=== PATIENT | male | born 1955 | race Caucasian/White ===

== ENCOUNTER 2020-08-07 15:15 | Emergency (ER) | payer MEDICARE ==
[~2020-08-07] VITALS: Ht 160 cm; Wt 121.1 kg
[~2020-08-07 15:15] MED LIST: ACET325T26 PO; ALBU90AE INH; AMLO10TA8 PO; ASCO500T8 PO; ASPI-496 PO; ASPI-650 PO; ATOR20TA37 PO; AZIT250T PO; CARB1TAB20 PO; CEFD300C37 PO; CYAN100074 PO; FURO-92 PO; FURO-93 PO; GABA300C10 PO; IBUP-1222 PO; LISI-167 PO; MULT-61 PO; PANT40TA3 PO; PANT40TA6 PO; POTA10TA11 PO; POTA20TA91 PO; PRED20TA PO; RIVA10TA2 PO; SIMV10TA18 PO; TRAM-47 PO; VITA100022 PO; XERALTO PO; [UNRECOGNIZED DRUG - CODE] PO
--- NOTE | 2020-08-07 15:45 | NUR ---
TANK BUILDER SUPERVISOR: PT AMBULATORY TO ROOM FROM LOBBY
[2020-08-07 16:04] LABS: BASOPHILS % (AUTO) 1 % (0-1); EOSINOPHILS % (AUTO) 2 % (1-7); LYMPHOCYTES % (AUTO) 27 % (22-44); MEAN CORPUSCULAR HGB CONC 32.7 g/dL (33.2-36.2); MONOCYTES % (AUTO) 10 % (2-9); NEUTROPHILS % (AUTO) 61 % (42-75); PLATELET COUNT 197 x10^3/uL (130-400); RED BLOOD COUNT 4.62 x10^6/uL (4.38-5.82); RED CELL DISTRIBUTION WIDTH 15.2 % (9.4-14.8)
[2020-08-07 16:10] LABS: ALBUMIN 3.4 g/dL (3.4-5.0); CALCIUM 8.7 mg/dL (8.5-10.1)
--- NOTE | 2020-08-07 16:10 | NUR ---
PT WITH INCREASED SOB OVER THE LAST COUPLE DAYS, PT WITH HX ASTHMA, STATES "THIS SMOKE IS MAKING IT WORSE" PT STATES HE ALSO IS HAVING "MILD" CHEST DISCOMFORT. VSS. PT TO ALL MONITORS AT THIS TIME
[2020-08-07 16:12] LABS: MD NO
[2020-08-07 16:17] LABS: ALANINE AMINOTRANSFERASE 18 U/L (12-78); ALKALINE PHOSPHATASE 104 U/L (45-117); BILIRUBIN,TOTAL 0.5 mg/dL (0.2-1.0); CREATININE 1.07 mg/dL (0.7-1.3); TOTAL PROTEIN 6.8 g/dL (6.4-8.2); TROPONIN I 0.015 ng/mL (0.000-0.045)
[2020-08-07 16:19] LABS: ANION GAP 6 mmol/L (5-15); CHLORIDE 112 mmol/L (98-107)
[2020-08-07 16:30] VITALS: BP 155/87
--- NOTE | 2020-08-07 16:50 | NUR ---
PT TO IMAGING AT THIS TIME
== END 2020-08-07 17:35 | disposition home or self-care (01) ==
LOC: ED 17:10
DX: R10.84 Generalized abdominal pain (principal); R94.31 Abnormal electrocardiogram [ECG] [EKG]; I10 Essential (primary) hypertension; E78.5 Hyperlipidemia, unspecified; I48.91 Unspecified atrial fibrillation; M19.90 Unspecified osteoarthritis, unspecified site; I11.0 Hypertensive heart disease with heart failure; I50.9 Heart failure, unspecified; K21.9 Gastro-esophageal reflux disease without esophagitis; G89.29 Other chronic pain; Z86.73 Personal history of transient ischemic attack (TIA), and cerebral infarction without residual deficits
CPT/HCPCS: 36415; 71045; 74021; 80053; 83880; 84484; 85025; 93005; 99285

== ENCOUNTER 2020-08-15 20:20 | Emergency (ER) | payer MEDICARE ==
[~2020-08-15] VITALS: Ht 160 cm; Wt 121.3 kg
[~2020-08-15 20:20] MED LIST changes: +AMLO-211 PO; -AMLO10TA8 PO; -CARB1TAB20 PO; +CARB1TAB33 PO
[2020-08-15 20:24] VITALS: BP 170/93
--- NOTE | 2020-08-15 20:29 | NUR ---
CANADIAN BACON TIER: EKG DONE IN TRIAGE
[2020-08-15] MEDS ORDERED: ALBUTEROL/IPRATROPIUM 2.5MG/0.5MG, 3 ML ONE (20:53)
[2020-08-15] MEDS ORDERED: ALBUTEROL/IPRATROPIUM 2.5MG/0.5MG, 3 ML NPPB ONE (21:00)
[2020-08-15] MEDS ORDERED: APIXABAN 5 MG TABLET PO STA (21:52)
[2020-08-15] MEDS ORDERED: APIXABAN 5 MG TABLET ONE (21:56)
--- NOTE | 2020-08-15 22:05 | NUR ---
REPORT GIVEN TO KILEY GAY.
--- NOTE | 2020-08-15 22:07 | NUR ---
Report received. Pt alert and resting on gurney. Cough present. Tech at bedside for repeat EKG.
--- NOTE | 2020-08-15 22:38 | NUR ---
Pt d/c'd to self care. Pt alert, oriented and ambulatory. No S/S of increased WOB. Pt educated on home care and follow-up. Pt denied questions, pt ambulated out of ER.
[2020-08-18] MEDS ORDERED: OMEP-110 PO (15:58)
[2020-08-18] MEDS ORDERED: APIX5TAB PO (15:58)
[2020-08-18] MEDS ORDERED: LOSA25TA25 PO (15:58)
[2020-08-18] MEDS ORDERED: CARV3.1212 PO (15:58)
[2020-08-18] MEDS ORDERED: ATOR10TA9 PO (15:58)
[2020-08-28] MEDS ORDERED: MIRT-37 PO (17:08)
== END 2020-08-15 22:40 | disposition home or self-care (01) ==
LOC: ED 21:41
DX: J45.41 Moderate persistent asthma with (acute) exacerbation (principal); R06.00 Dyspnea, unspecified; R07.89 Other chest pain; R05 Cough; K21.9 Gastro-esophageal reflux disease without esophagitis; I50.9 Heart failure, unspecified; I11.0 Hypertensive heart disease with heart failure; M19.90 Unspecified osteoarthritis, unspecified site; I48.91 Unspecified atrial fibrillation; E78.5 Hyperlipidemia, unspecified; E78.00 Pure hypercholesterolemia, unspecified
CPT/HCPCS: 93005; 94640; 99283; J7512

== ENCOUNTER 2020-08-21 02:45 | Emergency (ER) | payer MEDICARE ==
[~2020-08-21] VITALS: Ht 160 cm; Wt 120.9 kg
[~2020-08-21 02:45] MED LIST changes: -AMLO-211 PO; +AMLO10TA8 PO; +APIX5TAB PO; +ATOR10TA9 PO; +CARB1TAB20 PO; -CARB1TAB33 PO; +CARV3.1212 PO; +LOSA25TA25 PO; +OMEP-110 PO
--- NOTE | 2020-08-21 03:26 | NUR ---
PT STATES BILATERAL HIP PAIN THAT GOES DOWN LEGS STARTING AT 2300 08/20/2020. PT STATES 8/10 PAIN. PT RESTING COMFORTABLY. IN BED AND TALKING TO THIS PT ABOUT HISTORY OF [facility]. ERP TO [facility].
[2020-08-21 05:05] VITALS: BP 162/96
--- NOTE | 2020-08-21 05:06 | NUR ---
Patient given discharge instructions and they have confirmed that they understand the instructions. Patient ambulatory with steady gait. NAD, DENIES ADDITIONAL QUESTIONS OR NEEDS, NO PERSONAL BELONGINGS LEFT IN ROOM AFTER DC.
== END 2020-08-21 05:23 | disposition home or self-care (01) ==
LOC: ED 04:30
DX: M25.552 Pain in left hip (principal); M25.551 Pain in right hip; I11.0 Hypertensive heart disease with heart failure; I50.9 Heart failure, unspecified; E78.5 Hyperlipidemia, unspecified; E78.00 Pure hypercholesterolemia, unspecified; K21.9 Gastro-esophageal reflux disease without esophagitis; J44.9 Chronic obstructive pulmonary disease, unspecified; I48.91 Unspecified atrial fibrillation; M19.90 Unspecified osteoarthritis, unspecified site; G89.29 Other chronic pain; Z86.73 Personal history of transient ischemic attack (TIA), and cerebral infarction without residual deficits; Z87.891 Personal history of nicotine dependence
CPT/HCPCS: 72170; 99283

== ENCOUNTER 2020-08-26 11:12 | Outpatient (CLI) | payer MEDICARE ==
[~2020-08-26 11:12] MED LIST changes: +AMLO-211 PO; -AMLO10TA8 PO; -CARB1TAB20 PO; +CARB1TAB33 PO
[2020-08-28] MEDS ORDERED: MIRT-37 PO (17:08)
== END 2020-08-26 23:59 | disposition home or self-care (01) ==
LOC: LAB 11:12 → STAR 23:59
PROVIDERS: ATTEND Internal Medicine Clinical Cardiac Electrophysiology
DX: Z01.818 Encounter for other preprocedural examination (principal); I50.20 Unspecified systolic (congestive) heart failure
CPT/HCPCS: 93005

== ENCOUNTER 2020-08-26 11:50 | Observation (INO) | payer MEDICARE ==
[~2020-08-26] VITALS: Ht 160 cm; Wt 120.3 kg
[~2020-08-26 11:50] MED LIST changes: -AMLO-211 PO; +AMLO10TA8 PO; +CARB1TAB20 PO; -CARB1TAB33 PO
--- NOTE | 2020-08-26 12:08 | NUR ---
REPORT GIVEN TO KILEY JOHANSEN
[2020-08-26 12:35] LABS: BASOPHILS % (AUTO) 0 % (0-1); EOSINOPHILS % (AUTO) 1 % (1-7); LYMPHOCYTES % (AUTO) 23 % (22-44); MEAN CORPUSCULAR HEMOGLOBIN 29.5 pg (27.5-34.5); MEAN CORPUSCULAR HGB CONC 33.2 g/dL (33.2-36.2); MEAN PLATELET VOLUME 8.2 fL (7.4-10.4); MONOCYTES % (AUTO) 13 % (2-9); NEUTROPHILS % (AUTO) 63 % (42-75); PLATELET COUNT 207 x10^3/uL (130-400); RED BLOOD COUNT 4.75 x10^6/uL (4.38-5.82); RED CELL DISTRIBUTION WIDTH 14.8 % (9.4-14.8)
[2020-08-26 12:38] LABS: MD NO
[2020-08-26 12:39] LABS: INTERNATIONAL NORMALIZED RATIO 1.06 (0.93-1.1); PROTHROMBIN TIME 11.2 Seconds (9.6-11.5)
[2020-08-26 12:45] LABS: ALBUMIN 3.7 g/dL (3.4-5.0); ANION GAP 7 mmol/L (5-15); CALCIUM 8.7 mg/dL (8.5-10.1); CHLORIDE 103 mmol/L (98-107)
[2020-08-26 12:53] LABS: ALANINE AMINOTRANSFERASE 18 U/L (12-78); ALKALINE PHOSPHATASE 117 U/L (45-117); BILIRUBIN,TOTAL 0.4 mg/dL (0.2-1.0); CREATININE 1.04 mg/dL (0.7-1.3); TOTAL PROTEIN 7.3 g/dL (6.4-8.2); TROPONIN I < 0.015 ng/mL (0.000-0.045)
--- NOTE | 2020-08-26 13:33 | NUR ---
MED REQ UPDATED, PT STATED THERE HAVE BEEN NO CHANGES TO MEDS THIS MONTH. PT MADE AWARE OF ADMIT TO CARD FLOOR. PT ON MONITOR FOR VITALS. WILL CONTINUE TO MONITOR.
--- NOTE | 2020-08-26 13:53 | NUR ---
Break RN note: Meal tray ordered for pt per request. Pt resting in bed, watching TV. Pt reports CP still 06/10, unchanged. Pt denies other needs.
[2020-08-26] MEDS ORDERED: POLYETHYLENE GLYCOL 17 GM PACKET PO PRN (14:00)
[2020-08-26] MEDS ORDERED: METOCLOPRAMIDE 5 MG/ML, 2ML IVPush PRN (14:00)
[2020-08-26] MEDS ORDERED: MORPHINE SULFATE 4 MG/ML, 1ML IVPush PRN (14:00)
[2020-08-26] MEDS ORDERED: ONDANSETRON ODT 4 MG PO PRN (14:00)
[2020-08-26] MEDS ORDERED: TRAZODONE 50MG TABLET PO PRN (14:00)
[2020-08-26] MEDS ORDERED: MELATONIN 5 MG TABLET PO PRN (14:00)
--- NOTE | 2020-08-26 14:23 | NUR ---
Break RN note: Meal tray delivered to pt. Pt denies other needs.
--- NOTE | 2020-08-26 15:14 | NUR ---
REPORT TO RADHA CAO FOR ROOM 509-1. PT RESTING CALMLY IN BED.
[2020-08-26 15:42] VITALS: BP 131/84
[2020-08-26] MEDS: ACETAMINOPHEN 325 MG TABLET PO PRN ×2 (15:52→21:48)
[2020-08-26] MEDS: CARVEDILOL 3.125 MG TABLET PO SCH (17:47)
[2020-08-26 19:04] LABS: TROPONIN I < 0.015 ng/mL (0.000-0.045)
[2020-08-26 19:31] VITALS: BP 123/80
[2020-08-26] MEDS: ATORVASTATIN 10 MG TABLET PO SCH (19:58)
[2020-08-26] MEDS ORDERED: APIXABAN 5 MG TABLET PO SCH (21:00)
[2020-08-26 21:17] VITALS: BP 105/56
[2020-08-27 00:53] LABS: TROPONIN I < 0.015 ng/mL (0.000-0.045)
[2020-08-27 01:50] VITALS: BP 123/80
[2020-08-27] MEDS: OMEPRAZOLE 20 MG CAPSULE.DR PO SCH (05:42)
[2020-08-27] MEDS: CARVEDILOL 3.125 MG TABLET PO SCH ×2 (05:42→17:03)
[2020-08-27 05:45] VITALS: BP 119/83
[2020-08-27 05:57] LABS: CHOL/HDL RATIO 3.2; LDL/HDL RATIO 1.8 (0.5-3.0)
[2020-08-27 07:40] VITALS: BP 122/81
[2020-08-27] MEDS: SENNA/DOCUSATE TABLET PO SCH (07:46)
[2020-08-27] MEDS: AMLODIPINE 10 MG TAB PO SCH (07:54)
[2020-08-27] MEDS: LOSARTAN 25MG TABLET PO SCH (07:55)
[2020-08-27] MEDS: SODIUM CHLORIDE 0.9% 1,000 ML IV SCH (10:58)
[2020-08-27] MEDS ORDERED: SODIUM CHLORIDE 0.9% 1,000 ML IV SCH (11:00)
[2020-08-27 14:08] VITALS: BP 130/83
[2020-08-27 20:32] VITALS: BP 113/76
[2020-08-27] MEDS: ATORVASTATIN 10 MG TABLET PO SCH (20:39)
[2020-08-27] MEDS: ACETAMINOPHEN 325 MG TABLET PO PRN (23:25)
[2020-08-28] MEDS: SODIUM CHLORIDE 0.9% 1,000 ML IV SCH ×2 (00:20→08:34)
[2020-08-28] MEDS ORDERED: CALCIUM CARBONATE 500 MG TAB.CHEW PO PRN (01:00)
[2020-08-28 01:50] VITALS: BP 118/75
[2020-08-28] MEDS: CARVEDILOL 3.125 MG TABLET PO SCH ×2 (06:22→17:55)
[2020-08-28] MEDS: OMEPRAZOLE 20 MG CAPSULE.DR PO SCH (06:22)
[2020-08-28 07:41] VITALS: BP 102/69
[2020-08-28] MEDS: AMLODIPINE 10 MG TAB PO SCH (08:32)
[2020-08-28] MEDS: LOSARTAN 25MG TABLET PO SCH (08:33)
[2020-08-28] MEDS: SENNA/DOCUSATE TABLET PO SCH (08:33)
[2020-08-28] MEDS ORDERED: SODIUM CHLORIDE 0.9% 1,000 ML IV SCH ×2 (11:00→16:00)
[2020-08-28 12:32] VITALS: BP 112/74
[2020-08-28] MEDS ORDERED: NITROGLYCERIN 30 MCG/ML, 20ML VIAL ONE (15:05)
[2020-08-28] MEDS ORDERED: MIDAZOLAM 1 MG/ML, 5ML ONE (15:05)
[2020-08-28] MEDS ORDERED: HEPARIN 1,000 UNITS/ML, 10ML ONE (15:05)
[2020-08-28] MEDS ORDERED: VERAPAMIL 2.5 MG/ML, 2ML ONE (15:05)
[2020-08-28] MEDS ORDERED: LIDOCAINE-MPF 1%, 5ML ONE (15:05)
[2020-08-28] MEDS ORDERED: TICAGRELOR 90 MG TABLET ONE (15:05)
[2020-08-28] MEDS ORDERED: FENTANYL PF 100 MCG/2ML ONE (15:05)
[2020-08-28] MEDS ORDERED: BIVALIRUDIN 250 MG ONE (15:05)
[2020-08-28] MEDS ORDERED: MIRT15TA PO (17:08)
[2020-08-28] MEDS ORDERED: ZINC OXIDE 20% TP PRN (17:30)
[2020-08-28 18:20] VITALS: BP 130/88
== END 2020-08-28 20:28 | disposition home or self-care (01) ==
LOC: ED 13:12 → SUATTDRO 13:34 → EDIP 13:37 → 5SO 15:44
PROVIDERS: ADMIT Internal Medicine; ATTEND Internal Medicine
DX: R07.89 Other chest pain (principal); R73.9 Hyperglycemia, unspecified; E78.5 Hyperlipidemia, unspecified; G47.30 Sleep apnea, unspecified; K21.9 Gastro-esophageal reflux disease without esophagitis; K80.20 Calculus of gallbladder without cholecystitis without obstruction; I48.0 Paroxysmal atrial fibrillation; M17.0 Bilateral primary osteoarthritis of knee; J44.9 Chronic obstructive pulmonary disease, unspecified; E66.9 Obesity, unspecified; G20 Parkinson's disease; E78.00 Pure hypercholesterolemia, unspecified; L30.9 Dermatitis, unspecified; D68.69 Other thrombophilia; G47.00 Insomnia, unspecified; I25.10 Atherosclerotic heart disease of native coronary artery without angina pectoris; I11.0 Hypertensive heart disease with heart failure; I50.9 Heart failure, unspecified; I70.0 Atherosclerosis of aorta; F41.8 Other specified anxiety disorders; Z59.0 Homelessness; Z79.01 Long term (current) use of anticoagulants; Z79.899 Other long term (current) drug therapy; Z86.73 Personal history of transient ischemic attack (TIA), and cerebral infarction without residual deficits; Z68.42 Body mass index [BMI] 45.0-49.9, adult; Z86.711 Personal history of pulmonary embolism; Z87.891 Personal history of nicotine dependence
CPT/HCPCS: 36415; 71045; 80053; 80061; 82962; 83036; 83880; 84484; 85025; 85610; 85730; 93005; 93458; 96360; 96361; 99156; 99285; C1769; C1894; G0378; J1644; J2250; J3010; J7030; Q9967; J0583

== ENCOUNTER 2020-09-01 23:37 | Emergency (ER) | payer MEDICARE ==
[~2020-09-01] VITALS: Ht 160 cm; Wt 120.8 kg
[~2020-09-01 23:37] MED LIST changes: +MIRT15TA PO
[2020-09-02] MEDS ORDERED: DEXAMETHASONE 4 MG TABLET PO ONE
[2020-09-02] MEDS ORDERED: ACETAMINOPHEN 325 MG TABLET PO ONE
[2020-09-02] MEDS ORDERED: ACETAMINOPHEN 325 MG TABLET ONE (00:04)
[2020-09-02] MEDS ORDERED: DEXAMETHASONE 4 MG TABLET ONE (00:04)
[2020-09-02 00:35] VITALS: BP 139/82
== END 2020-09-02 01:08 | disposition home or self-care (01) ==
LOC: ED 23:55
DX: M54.41 Lumbago with sciatica, right side (principal); J44.9 Chronic obstructive pulmonary disease, unspecified; I48.91 Unspecified atrial fibrillation; E78.00 Pure hypercholesterolemia, unspecified; E78.5 Hyperlipidemia, unspecified; K21.9 Gastro-esophageal reflux disease without esophagitis; Z86.73 Personal history of transient ischemic attack (TIA), and cerebral infarction without residual deficits
CPT/HCPCS: 72110; 99283

== ENCOUNTER 2020-09-04 17:16 | Observation (INO) | payer MEDICARE ==
[~2020-09-04] VITALS: Ht 160 cm; Wt 117.7 kg
[~2020-09-04 17:16] MED LIST changes: +AMLO-211 PO; -AMLO10TA8 PO; -CARB1TAB20 PO; +CARB1TAB33 PO; +MIRT-37 PO; -MIRT15TA PO
--- NOTE | 2020-09-04 17:40 | NUR ---
EXHAUST EMISSIONS AUTOMOTIVE TECHNICIAN: PT AMBULATORY TO ROOM FROM LOBBY
[2020-09-04 17:47] LABS: BASOPHILS % (AUTO) 0 % (0-1); EOSINOPHILS % (AUTO) 1 % (1-7); LYMPHOCYTES % (AUTO) 18 % (22-44); MEAN CORPUSCULAR HEMOGLOBIN 28.9 pg (27.5-34.5); MEAN CORPUSCULAR HGB CONC 32.5 g/dL (33.2-36.2); MEAN PLATELET VOLUME 7.9 fL (7.4-10.4); MONOCYTES % (AUTO) 12 % (2-9); NEUTROPHILS % (AUTO) 69 % (42-75); PLATELET COUNT 260 x10^3/uL (130-400); RED BLOOD COUNT 4.86 x10^6/uL (4.38-5.82); RED CELL DISTRIBUTION WIDTH 14.7 % (9.4-14.8)
[2020-09-04 17:49] LABS: MD NO
[2020-09-04 18:00] LABS: ALBUMIN 3.8 g/dL (3.4-5.0); ANION GAP 6 mmol/L (5-15); CALCIUM 8.6 mg/dL (8.5-10.1); CHLORIDE 110 mmol/L (98-107)
[2020-09-04 18:05] LABS: ALANINE AMINOTRANSFERASE 19 U/L (12-78); ALKALINE PHOSPHATASE 118 U/L (45-117); BILIRUBIN,TOTAL 0.5 mg/dL (0.2-1.0); CREATININE 1.11 mg/dL (0.7-1.3); TOTAL PROTEIN 7.4 g/dL (6.4-8.2)
[2020-09-04] MEDS ORDERED: SODIUM CHLORIDE 0.9% 1,000 ML IV ONE (19:00)
[2020-09-04] MEDS ORDERED: ONDANSETRON 2MG/ML, 2ML IVPush ONE (19:00)
[2020-09-04] MEDS ORDERED: MORPHINE SULFATE 4 MG/ML, 1ML IVPush PRN (19:00)
[2020-09-04] MEDS ORDERED: ONDANSETRON 2MG/ML, 2ML ONE (19:14)
[2020-09-04] MEDS ORDERED: MORPHINE SULFATE 4 MG/ML, 1ML ONE (19:14)
[2020-09-04] MEDS ORDERED: OMNIPAQUE 350 MG/ML, 100ML BOTTLE ONE (21:14)
[2020-09-04] MEDS ORDERED: DOCUSATE 100 MG CAPSULE PO PRN (22:30)
[2020-09-04] MEDS ORDERED: ACETAMINOPHEN 325 MG TABLET PO PRN (22:30)
[2020-09-04] MEDS ORDERED: ONDANSETRON 2MG/ML, 2ML IVPush PRN (22:30)
[2020-09-04] MEDS: SODIUM CHLORIDE 0.9% 1,000 ML IV SCH (22:30)
[2020-09-04 22:39] VITALS: BP 102/78
[2020-09-05 01:25] VITALS: BP 107/70
[2020-09-05] MEDS: SODIUM CHLORIDE 0.9% 1,000 ML IV SCH (05:00)
[2020-09-05 05:55] LABS: BASOPHILS % (AUTO) 0 % (0-1); EOSINOPHILS % (AUTO) 1 % (1-7); LYMPHOCYTES % (AUTO) 25 % (22-44); MEAN CORPUSCULAR HEMOGLOBIN 29.8 pg (27.5-34.5); MEAN CORPUSCULAR HGB CONC 33.1 g/dL (33.2-36.2); MONOCYTES % (AUTO) 15 % (2-9); NEUTROPHILS % (AUTO) 59 % (42-75); PLATELET COUNT 209 x10^3/uL (130-400); RED BLOOD COUNT 4.31 x10^6/uL (4.38-5.82); RED CELL DISTRIBUTION WIDTH 14.6 % (9.4-14.8)
[2020-09-05 06:00] LABS: ANION GAP 6 mmol/L (5-15); CALCIUM 8.1 mg/dL (8.5-10.1); CHLORIDE 111 mmol/L (98-107); CREATININE 0.94 mg/dL (0.7-1.3)
[2020-09-05 06:01] LABS: MD NO
[2020-09-05] MEDS ORDERED: POTASSIUM CHLORIDE 40 MEQ in SODIUM CHLORIDE 0.45% 1,000 ML IV SCH (07:00)
[2020-09-05 07:51] VITALS: BP 98/64
[2020-09-05] MEDS ORDERED: OMEPRAZOLE 20 MG CAPSULE.DR PO SCH (09:00)
[2020-09-05] MEDS ORDERED: CARVEDILOL 3.125 MG TABLET PO SCH (09:00)
[2020-09-05] MEDS ORDERED: AMLODIPINE 5 MG TABLET PO SCH (09:00)
[2020-09-05] MEDS ORDERED: APIXABAN 5 MG TABLET PO SCH (09:00)
[2020-09-05] MEDS ORDERED: LOSARTAN 25MG TABLET PO SCH (09:00)
[2020-09-05] MEDS: POTASSIUM CHLORIDE 20 MEQ TAB.ER.PRT PO SCH ×2 (09:12→17:20)
[2020-09-05 09:56] LABS: CLOSTRIDIUM DIFFICILE ANTIGEN INDETERMINATE; CLOSTRIDIUM DIFFICILE TOXIN INDETERMINATE (Negative)
[2020-09-05 15:59] VITALS: BP 120/80
[2020-09-05 16:33] LABS: CLOSTRIDIUM DIFFICILE ANTIGEN NEGATIVE; CLOSTRIDIUM DIFFICILE TOXIN POSITIVE (Negative)
[2020-09-05] MEDS ORDERED: MIRTAZAPINE 15 MG TABLET PO SCH (21:00)
[2020-09-05] MEDS ORDERED: ATORVASTATIN 10 MG TABLET PO SCH (21:00)
[2020-09-06] MEDS ORDERED: CYAN50008 PO (14:31)
[2020-09-06] MEDS ORDERED: CHOL10003 PO (14:32)
== END 2020-09-05 18:35 | disposition home or self-care (01) ==
LOC: ED 18:08 → EDIP 21:59 → INTOOBSV 21:59 → 4NW 22:30
PROVIDERS: ADMIT Family Medicine; ATTEND Family Medicine
DX: K52.9 Noninfective gastroenteritis and colitis, unspecified (principal); E86.0 Dehydration; I48.0 Paroxysmal atrial fibrillation; D68.69 Other thrombophilia; E78.5 Hyperlipidemia, unspecified; F41.9 Anxiety disorder, unspecified; G47.33 Obstructive sleep apnea (adult) (pediatric); M19.90 Unspecified osteoarthritis, unspecified site; K56.600 Partial intestinal obstruction, unspecified as to cause; I11.0 Hypertensive heart disease with heart failure; I50.9 Heart failure, unspecified; J44.9 Chronic obstructive pulmonary disease, unspecified; G20 Parkinson's disease; E78.00 Pure hypercholesterolemia, unspecified; K21.9 Gastro-esophageal reflux disease without esophagitis; E88.9 Metabolic disorder, unspecified; Z86.73 Personal history of transient ischemic attack (TIA), and cerebral infarction without residual deficits; Z79.01 Long term (current) use of anticoagulants; Z79.899 Other long term (current) drug therapy; Z86.711 Personal history of pulmonary embolism
CPT/HCPCS: 36415; 74021; 74177; 80048; 80053; 83690; 85025; 87324; 87493; 96361; 96374; 96375; 99285; G0378; J2270; J2405; J3480; J7030; Q9967

== ENCOUNTER 2020-09-06 11:52 | Emergency (ER) | payer MEDICARE ==
[~2020-09-06] VITALS: Ht 160 cm; Wt 119.7 kg
[2020-09-06 12:08] VITALS: BP 144/82
[2020-09-06 12:44] LABS: BASOPHILS % (AUTO) 0 % (0-1); EOSINOPHILS % (AUTO) 1 % (1-7); LYMPHOCYTES % (AUTO) 18 % (22-44); MEAN CORPUSCULAR HEMOGLOBIN 29.6 pg (27.5-34.5); MEAN CORPUSCULAR HGB CONC 33.3 g/dL (33.2-36.2); MEAN PLATELET VOLUME 7.7 fL (7.4-10.4); MONOCYTES % (AUTO) 15 % (2-9); NEUTROPHILS % (AUTO) 66 % (42-75); PLATELET COUNT 229 x10^3/uL (130-400); RED BLOOD COUNT 4.55 x10^6/uL (4.38-5.82); RED CELL DISTRIBUTION WIDTH 14.8 % (9.4-14.8)
[2020-09-06 12:47] LABS: ALBUMIN 3.4 g/dL (3.4-5.0); ANION GAP 5 mmol/L (5-15); CALCIUM 8.6 mg/dL (8.5-10.1); CHLORIDE 109 mmol/L (98-107)
[2020-09-06 12:49] LABS: MD NO
[2020-09-06 12:52] LABS: ALANINE AMINOTRANSFERASE 17 U/L (12-78); ALKALINE PHOSPHATASE 108 U/L (45-117); BILIRUBIN,TOTAL 0.8 mg/dL (0.2-1.0); CREATININE 0.92 mg/dL (0.7-1.3); TOTAL PROTEIN 7.1 g/dL (6.4-8.2)
--- NOTE | 2020-09-06 14:02 | NUR ---
RACE STARTER: PT TO ROOM FROM LOBBY
[2020-09-06] MEDS ORDERED: CYAN50008 PO (14:31)
[2020-09-06] MEDS ORDERED: CHOL10003 PO (14:32)
[2020-09-06] MEDS ORDERED: VANCOMYCIN 50 MG/ML ORAL SUSP PO STA (14:45)
[2020-09-06] MEDS ORDERED: LOPERAMIDE 2 MG CAPSULE PO STA (14:56)
[2020-09-06] MEDS ORDERED: ONDANSETRON ODT 4 MG PO ONE (15:00)
[2020-09-06] MEDS ORDERED: ONDANSETRON ODT 4 MG ONE (15:11)
[2020-09-06] MEDS ORDERED: LOPERAMIDE 2 MG CAPSULE ONE (15:11)
--- NOTE | 2020-09-06 16:34 | NUR ---
Patient given discharge instructions and they have confirmed that they understand the instructions. Patient ambulatory with steady gait.
== END 2020-09-06 16:35 | disposition home or self-care (01) ==
LOC: ED 12:57
DX: K52.9 Noninfective gastroenteritis and colitis, unspecified (principal); R11.2 Nausea with vomiting, unspecified; J44.9 Chronic obstructive pulmonary disease, unspecified; I11.0 Hypertensive heart disease with heart failure; I50.9 Heart failure, unspecified; K21.9 Gastro-esophageal reflux disease without esophagitis; E78.00 Pure hypercholesterolemia, unspecified; I48.91 Unspecified atrial fibrillation; M19.90 Unspecified osteoarthritis, unspecified site; E78.5 Hyperlipidemia, unspecified; E66.9 Obesity, unspecified; Z68.42 Body mass index [BMI] 45.0-49.9, adult; Z86.73 Personal history of transient ischemic attack (TIA), and cerebral infarction without residual deficits
CPT/HCPCS: 36415; 80053; 85025; 99284; J3370; Q0162

== ENCOUNTER 2020-09-08 17:16 | Emergency (ER) | payer MEDICARE ==
[~2020-09-08] VITALS: Ht 160 cm; Wt 118.8 kg
[~2020-09-08 17:16] MED LIST changes: +CHOL10003 PO; +CYAN50008 PO
[2020-09-08] MEDS ORDERED: HYDROmorphone 2 MG/ML, 1ML ONE (17:47)
[2020-09-08] MEDS ORDERED: ONDANSETRON 2MG/ML, 2ML ONE (17:48)
[2020-09-08] MEDS ORDERED: SODIUM CHLORIDE 0.9% 1,000ML IVBOLUS ONE (18:00)
[2020-09-08] MEDS ORDERED: SODIUM CHLORIDE FLUSH 10ML SYR IVF ONE (18:00)
[2020-09-08] MEDS ORDERED: ONDANSETRON 2MG/ML, 2ML IVPush ONE (18:00)
[2020-09-08] MEDS ORDERED: HYDROmorphone 2 MG/ML, 1ML IVPush PRN ×2 (18:00→18:30)
[2020-09-08] MEDS ORDERED: SODIUM CHLORIDE 0.9% 1,000 ML IV ONE (18:00)
[2020-09-08 18:05] LABS: BASOPHILS % (AUTO) 0 % (0-1); EOSINOPHILS % (AUTO) 2 % (1-7); LYMPHOCYTES % (AUTO) 19 % (22-44); MEAN CORPUSCULAR HEMOGLOBIN 29.2 pg (27.5-34.5); MEAN PLATELET VOLUME 7.9 fL (7.4-10.4); MONOCYTES % (AUTO) 14 % (2-9); NEUTROPHILS % (AUTO) 64 % (42-75); PLATELET COUNT 219 x10^3/uL (130-400); RED BLOOD COUNT 4.38 x10^6/uL (4.38-5.82); RED CELL DISTRIBUTION WIDTH 14.4 % (9.4-14.8)
[2020-09-08 18:09] LABS: ALANINE AMINOTRANSFERASE 15 U/L (12-78); ALBUMIN 3.2 g/dL (3.4-5.0); ANION GAP 4 mmol/L (5-15); CALCIUM 8.3 mg/dL (8.5-10.1); CHLORIDE 110 mmol/L (98-107); CREATININE 1.07 mg/dL (0.7-1.3)
[2020-09-08 18:10] LABS: MD NO
[2020-09-08 18:11] LABS: ALKALINE PHOSPHATASE 95 U/L (45-117); BILIRUBIN,TOTAL 0.5 mg/dL (0.2-1.0); TOTAL PROTEIN 6.3 g/dL (6.4-8.2)
--- NOTE | 2020-09-08 18:45 | NUR ---
PT RESTING IN [facility], NO COMPLAINTS AT THIS TIME.
--- NOTE | 2020-09-08 19:48 | NUR ---
PT RESTING IN [facility], NO COMPLAINTS AT THIS TIME.
[2020-09-08 20:02] LABS: MICROSCOPIC NOT IND
[2020-09-08 20:25] VITALS: BP 125/85
--- NOTE | 2020-09-08 20:28 | NUR ---
PATIENT DISCHARGED. PT REPORTS HE HAS A RIDE HOME.
== END 2020-09-08 20:45 ==
LOC: ED 17:39
DX: R10.12 Left upper quadrant pain (principal); R10.32 Left lower quadrant pain; R11.0 Nausea; R94.31 Abnormal electrocardiogram [ECG] [EKG]; I11.0 Hypertensive heart disease with heart failure; I50.9 Heart failure, unspecified; K21.9 Gastro-esophageal reflux disease without esophagitis; J44.9 Chronic obstructive pulmonary disease, unspecified; I48.91 Unspecified atrial fibrillation; G89.29 Other chronic pain; Z87.891 Personal history of nicotine dependence
CPT/HCPCS: 36415; 74018; 80053; 81003; 83605; 83690; 85025; 93005; 96361; 96374; 96375; 99285; J1170; J2405; J7030

== ENCOUNTER 2020-09-13 04:55 | Emergency (ER) | payer MEDICARE ==
[~2020-09-13] VITALS: Ht 160 cm; Wt 120.3 kg
--- NOTE | 2020-09-13 05:57 | NUR ---
MAJOR ASSEMBLER: PT. TO ROOM FROM LOBBY VIA W/C AT THIS TIME.
[2020-09-13 06:46] LABS: BASOPHILS % (AUTO) 1 % (0-1); EOSINOPHILS % (AUTO) 1 % (1-7); LYMPHOCYTES % (AUTO) 22 % (22-44); MEAN CORPUSCULAR HEMOGLOBIN 29.6 pg (27.5-34.5); MEAN CORPUSCULAR HGB CONC 33.4 g/dL (33.2-36.2); MEAN PLATELET VOLUME 7.5 fL (7.4-10.4); MONOCYTES % (AUTO) 17 % (2-9); NEUTROPHILS % (AUTO) 60 % (42-75); PLATELET COUNT 178 x10^3/uL (130-400); RED BLOOD COUNT 4.03 x10^6/uL (4.38-5.82); RED CELL DISTRIBUTION WIDTH 14.6 % (9.4-14.8)
--- NOTE | 2020-09-13 06:54 | NUR ---
Report given to KILEY De La O. Patient care transferred.
[2020-09-13 07:00] VITALS: BP 161/98
[2020-09-13 07:02] LABS: ALANINE AMINOTRANSFERASE 17 U/L (12-78); ALBUMIN 3.1 g/dL (3.4-5.0); ANION GAP 4 mmol/L (5-15); CALCIUM 8.7 mg/dL (8.5-10.1); CHLORIDE 110 mmol/L (98-107)
[2020-09-13 07:04] LABS: MD NO
[2020-09-13 07:07] LABS: ALKALINE PHOSPHATASE 97 U/L (45-117); BILIRUBIN,TOTAL 0.7 mg/dL (0.2-1.0); CREATININE 0.87 mg/dL (0.7-1.3); TOTAL PROTEIN 6.3 g/dL (6.4-8.2); TROPONIN I < 0.015 ng/mL (0.000-0.045)
--- NOTE | 2020-09-13 07:57 | NUR ---
Patient given discharge instructions and they have confirmed that they understand the instructions. Patient ambulatory with steady gait.
== END 2020-09-13 07:58 | disposition home or self-care (01) ==
LOC: ED 07:45
DX: R07.89 Other chest pain (principal); R10.9 Unspecified abdominal pain; J44.9 Chronic obstructive pulmonary disease, unspecified; K21.9 Gastro-esophageal reflux disease without esophagitis; I10 Essential (primary) hypertension; E78.5 Hyperlipidemia, unspecified; I48.91 Unspecified atrial fibrillation; E66.9 Obesity, unspecified; Z68.42 Body mass index [BMI] 45.0-49.9, adult; Z86.73 Personal history of transient ischemic attack (TIA), and cerebral infarction without residual deficits
CPT/HCPCS: 36415; 74022; 80053; 83690; 84484; 85025; 93005; 99285

== ENCOUNTER 2020-09-15 23:18 | Emergency (ER) | payer MEDICARE ==
[~2020-09-15] VITALS: Ht 160 cm; Wt 122.0 kg
--- NOTE | 2020-09-15 23:25 | NUR ---
BAND RIPSAW OPERATOR: EKG DONE IN TRIAGE.
--- NOTE | 2020-09-15 23:39 | NUR ---
CC OF SHARP CHEST PAIN 06/10 SINCE APROX 1800 TODAY. PAIN RADIATES TO BACK. FEELS BETTER AT REST. PT PLACED ON BLOW MOLDER AND CONTINUOUS PULSE OX. PT SITTING UP IN [place], CALL LIGHT WITHIN REACH.
[2020-09-16 00:05] LABS: BASOPHILS % (AUTO) 1 % (0-1); EOSINOPHILS % (AUTO) 1 % (1-7); LYMPHOCYTES % (AUTO) 25 % (22-44); MEAN CORPUSCULAR HGB CONC 33.7 g/dL (33.2-36.2); MONOCYTES % (AUTO) 12 % (2-9); NEUTROPHILS % (AUTO) 62 % (42-75); PLATELET COUNT 164 x10^3/uL (130-400); RED CELL DISTRIBUTION WIDTH 14.9 % (9.4-14.8)
[2020-09-16 00:09] LABS: MD NO
[2020-09-16 00:13] LABS: ANION GAP 5 mmol/L (5-15); CALCIUM 8.2 mg/dL (8.5-10.1); CHLORIDE 110 mmol/L (98-107); CREATININE 0.93 mg/dL (0.7-1.3)
[2020-09-16 00:17] LABS: TROPONIN I < 0.015 ng/mL (0.000-0.045)
[2020-09-16 00:43] VITALS: BP 135/72
== END 2020-09-16 01:00 | disposition home or self-care (01) ==
LOC: ED 23:33
DX: R07.89 Other chest pain (principal); R06.00 Dyspnea, unspecified; I44.0 Atrioventricular block, first degree; I11.0 Hypertensive heart disease with heart failure; I50.9 Heart failure, unspecified; J44.9 Chronic obstructive pulmonary disease, unspecified; M19.90 Unspecified osteoarthritis, unspecified site; I48.91 Unspecified atrial fibrillation; K21.9 Gastro-esophageal reflux disease without esophagitis; Z86.73 Personal history of transient ischemic attack (TIA), and cerebral infarction without residual deficits
CPT/HCPCS: 36415; 71045; 80048; 82040; 83880; 84484; 85025; 93005; 99283; 99285

== ENCOUNTER 2020-09-22 02:17 | Emergency (ER) | payer MEDICARE ==
[~2020-09-22] VITALS: Ht 160 cm; Wt 118.2 kg
--- NOTE | 2020-09-22 02:52 | NUR ---
PT HERE FOR NAUSEA ND BLOODY STOOL TODAY. VSS. LAB AT BEDSIDE
[2020-09-22] MEDS ORDERED: ONDANSETRON ODT 4 MG ONE (02:55)
[2020-09-22] MEDS ORDERED: SODIUM CHLORIDE FLUSH 10ML SYR IVF ONE (03:00)
[2020-09-22] MEDS ORDERED: ONDANSETRON ODT 4 MG PO ONE (03:00)
--- NOTE | 2020-09-22 03:04 | NUR ---
PT MEDICATED FOR NAUSEA. PT RESTING WITH NO NEEDS AT THIS TIME. CALL LIGHT IN REACH
[2020-09-22 03:16] LABS: ALANINE AMINOTRANSFERASE 22 U/L (12-78); ALBUMIN 3.4 g/dL (3.4-5.0); ANION GAP 6 mmol/L (5-15); CALCIUM 8.6 mg/dL (8.5-10.1); CHLORIDE 113 mmol/L (98-107); CREATININE 1.02 mg/dL (0.7-1.3)
[2020-09-22 03:18] LABS: ALKALINE PHOSPHATASE 101 U/L (45-117); BASOPHILS % (AUTO) 1 % (0-1); BILIRUBIN,TOTAL 0.5 mg/dL (0.2-1.0); EOSINOPHILS % (AUTO) 1 % (1-7); LYMPHOCYTES % (AUTO) 15 % (22-44); MEAN CORPUSCULAR HEMOGLOBIN 29.5 pg (27.5-34.5); MEAN CORPUSCULAR HGB CONC 33.2 g/dL (33.2-36.2); MEAN PLATELET VOLUME 8.2 fL (7.4-10.4); MONOCYTES % (AUTO) 10 % (2-9); NEUTROPHILS % (AUTO) 74 % (42-75); PLATELET COUNT 269 x10^3/uL (130-400); RED CELL DISTRIBUTION WIDTH 14.9 % (9.4-14.8); TOTAL PROTEIN 6.7 g/dL (6.4-8.2)
[2020-09-22 03:21] LABS: MD NO
--- NOTE | 2020-09-22 03:40 | NUR ---
Patient given discharge instructions and they have confirmed that they understand the instructions. Patient ambulatory with steady gait.
[2020-09-22 03:41] VITALS: BP 137/73
== END 2020-09-22 03:45 | disposition home or self-care (01) ==
LOC: ED 03:15
DX: R10.84 Generalized abdominal pain (principal); R19.7 Diarrhea, unspecified; R11.0 Nausea; I11.0 Hypertensive heart disease with heart failure; I50.9 Heart failure, unspecified; J44.9 Chronic obstructive pulmonary disease, unspecified; I48.91 Unspecified atrial fibrillation; E78.00 Pure hypercholesterolemia, unspecified; E78.5 Hyperlipidemia, unspecified; G20 Parkinson's disease; Z72.9 Problem related to lifestyle, unspecified; Z86.711 Personal history of pulmonary embolism; Z86.73 Personal history of transient ischemic attack (TIA), and cerebral infarction without residual deficits; Z87.891 Personal history of nicotine dependence
CPT/HCPCS: 36415; 80053; 83690; 85025; 99283; Q0162

== ENCOUNTER 2020-09-26 01:35 | Emergency (ER) | payer MEDICARE ==
[~2020-09-26] VITALS: Ht 160 cm; Wt 119.8 kg
[2020-09-26] MEDS ORDERED: ASPIRIN 81 MG TABLET CHEW PO ONE (02:30)
[2020-09-26] MEDS ORDERED: ASPIRIN 81 MG TABLET CHEW ONE (02:42)
[2020-09-26 02:45] LABS: BASOPHILS % (AUTO) 1 % (0-1); EOSINOPHILS % (AUTO) 4 % (1-7); LYMPHOCYTES % (AUTO) 32 % (22-44); MEAN CORPUSCULAR HEMOGLOBIN 29.6 pg (27.5-34.5); MEAN CORPUSCULAR HGB CONC 33.4 g/dL (33.2-36.2); MEAN PLATELET VOLUME 7.4 fL (7.4-10.4); MONOCYTES % (AUTO) 17 % (2-9); NEUTROPHILS % (AUTO) 47 % (42-75); PLATELET COUNT 262 x10^3/uL (130-400); RED BLOOD COUNT 4.01 x10^6/uL (4.38-5.82); RED CELL DISTRIBUTION WIDTH 14.8 % (9.4-14.8)
[2020-09-26 02:50] LABS: MD NO
[2020-09-26 02:55] LABS: ANION GAP 3 mmol/L (5-15); CHLORIDE 108 mmol/L (98-107); CREATININE 1.15 mg/dL (0.7-1.3)
[2020-09-26 02:59] LABS: TROPONIN I < 0.015 ng/mL (0.000-0.045)
--- NOTE | 2020-09-26 03:01 | NUR ---
PT ERE FOR LEFT SIDED CEST PAIN THAT IS SHARP AND NON RADIATING. PAIN STARTED AT MIDNIGHT AND IS CONSTANT. PT PLACED ON MONITORS AND GIVEN 162 MG ASA. VSS. CALL LIGHT IN REACH
[2020-09-26 04:01] VITALS: BP 134/71
--- NOTE | 2020-09-26 04:01 | NUR ---
Patient given discharge instructions and they have confirmed that they understand the instructions. Patient ambulatory with steady gait.
== END 2020-09-26 04:21 | disposition home or self-care (01) ==
LOC: ED 03:16
DX: R07.89 Other chest pain (principal); R06.02 Shortness of breath; E11.9 Type 2 diabetes mellitus without complications; J44.9 Chronic obstructive pulmonary disease, unspecified; I11.0 Hypertensive heart disease with heart failure; I50.9 Heart failure, unspecified; K21.9 Gastro-esophageal reflux disease without esophagitis; E78.00 Pure hypercholesterolemia, unspecified; E78.5 Hyperlipidemia, unspecified; M19.90 Unspecified osteoarthritis, unspecified site; Z86.73 Personal history of transient ischemic attack (TIA), and cerebral infarction without residual deficits; Z87.891 Personal history of nicotine dependence
CPT/HCPCS: 36415; 71045; 80048; 82040; 84484; 85025; 93005; 99285

== ENCOUNTER 2020-09-30 00:22 | Emergency (ER) | payer MEDICARE ==
[~2020-09-30] VITALS: Ht 160 cm; Wt 118.0 kg
[2020-09-30 00:33] VITALS: BP 155/85
[2020-09-30 01:35] LABS: BASOPHILS % (AUTO) 0 % (0-1); EOSINOPHILS % (AUTO) 2 % (1-7); LYMPHOCYTES % (AUTO) 30 % (22-44); MEAN CORPUSCULAR HGB CONC 32.8 g/dL (33.2-36.2); MEAN PLATELET VOLUME 7.5 fL (7.4-10.4); MONOCYTES % (AUTO) 15 % (2-9); NEUTROPHILS % (AUTO) 53 % (42-75); PLATELET COUNT 228 x10^3/uL (130-400); RED BLOOD COUNT 4.21 x10^6/uL (4.38-5.82); RED CELL DISTRIBUTION WIDTH 14.9 % (9.4-14.8)
[2020-09-30 01:43] LABS: ALBUMIN 3.2 g/dL (3.4-5.0); CALCIUM 8.4 mg/dL (8.5-10.1); CHLORIDE 110 mmol/L (98-107)
[2020-09-30 01:46] LABS: ANION GAP < 1 mmol/L (5-15)
[2020-09-30 01:47] LABS: TROPONIN I < 0.015 ng/mL (0.000-0.045)
[2020-09-30 01:50] LABS: MD NO
--- NOTE | 2020-09-30 03:27 | NUR ---
cardiothoracic icu rn; pt discharged from [facility] at this time
== END 2020-09-30 03:28 | disposition home or self-care (01) ==
LOC: ED 01:19
DX: R07.2 Precordial pain (principal); M54.5 Low back pain; Z72.9 Problem related to lifestyle, unspecified; R06.02 Shortness of breath; R94.31 Abnormal electrocardiogram [ECG] [EKG]; I11.0 Hypertensive heart disease with heart failure; I50.9 Heart failure, unspecified; E11.9 Type 2 diabetes mellitus without complications; E78.5 Hyperlipidemia, unspecified; J44.9 Chronic obstructive pulmonary disease, unspecified; I48.91 Unspecified atrial fibrillation; E78.00 Pure hypercholesterolemia, unspecified; K21.9 Gastro-esophageal reflux disease without esophagitis; Z87.891 Personal history of nicotine dependence
CPT/HCPCS: 36415; 71046; 72110; 80048; 82040; 84484; 85025; 93005; 99285

== ENCOUNTER 2020-10-11 12:05 | Emergency (ER) | payer MEDICARE ==
[~2020-10-11] VITALS: Ht 167.6 cm; Wt 114.0 kg
--- NOTE | 2020-10-11 12:21 | NUR ---
FLEXO FOLDER GLUER OPERATOR: PT SEEN BY IN TRIAGE, CODE NEURO NOT INDICATED AT THIS TIME.
--- NOTE | 2020-10-11 12:35 | NUR ---
DR FERNANDO IN ROOM FOR ASSESSMENT. PT W HX 2 TIAS, CLEAR MRI AT [facility]. STS COMPLIANT W MEDS. LIVES AT HALFWAY. NUMBNESS AND TINGLING IN R SIDE BODY STARTED AT 1130. NO LEHMAN/DIZZINESS. LIFTS EYEBROWS, DIM SENSATION R FACE, NO FACIAL DROOP. R HANDGRASP WEAKER BUT R SHOULDER SHRUG SAME. PT W WEAKER R LEG LIFT .ALSO PT STARTED MOVING R ARM WHILE EYES WERE OPEN AND JUST KEPT IT LOWER IN ONE SPOT WHEN ASKED TO LIFT BOTH ARMS. PT A&OX4 GCS 15, JOVIAL, VERY CHATTY. CALM. CALL XIONG IN REACH.
--- NOTE | 2020-10-11 12:45 | NUR ---
ASSUMED CARE OF PATIENT. IV STARTED, LABS DRAWN, CALL LIGHT WITHIN PLACE. NO ADDITIONAL NEEDS AT THIS TIME.
[2020-10-11] MEDS ORDERED: SODIUM CHLORIDE FLUSH 10ML SYR IVF ONE (13:00)
[2020-10-11 13:06] LABS: BASOPHILS % (AUTO) 1 % (0-1); EOSINOPHILS % (AUTO) 2 % (1-7); LYMPHOCYTES % (AUTO) 31 % (22-44); MEAN CORPUSCULAR HEMOGLOBIN 29.3 pg (27.5-34.5); MEAN CORPUSCULAR HGB CONC 33.2 g/dL (33.2-36.2); MEAN PLATELET VOLUME 7.9 fL (7.4-10.4); MONOCYTES % (AUTO) 16 % (2-9); NEUTROPHILS % (AUTO) 50 % (42-75); PLATELET COUNT 180 x10^3/uL (130-400); RED BLOOD COUNT 4.13 x10^6/uL (4.38-5.82); RED CELL DISTRIBUTION WIDTH 14.9 % (9.4-14.8)
[2020-10-11 13:11] LABS: INTERNATIONAL NORMALIZED RATIO 1.08 (0.93-1.1); PROTHROMBIN TIME 11.4 Seconds (9.6-11.5)
[2020-10-11 13:12] LABS: ALANINE AMINOTRANSFERASE 20 U/L (12-78); ALBUMIN 3.2 g/dL (3.4-5.0); ANION GAP 4 mmol/L (5-15); CALCIUM 8.3 mg/dL (8.5-10.1); CHLORIDE 109 mmol/L (98-107)
[2020-10-11 13:14] LABS: ALKALINE PHOSPHATASE 118 U/L (45-117); BILIRUBIN,TOTAL 0.5 mg/dL (0.2-1.0); CREATININE 0.97 mg/dL (0.7-1.3); TOTAL PROTEIN 6.4 g/dL (6.4-8.2)
[2020-10-11 13:17] LABS: MD NO
--- NOTE | 2020-10-11 13:25 | NUR ---
PATIENT REQUESTED GENERAL ANESTHESIA FOR MRI. ADVISED WE COULD GIVE HIM SOME MEDICATION TO RELAX HIM BUT COULD NOT DO GENERAL ANESTHESIA. HE AGREED TO TRY. WILL NOTIFY MRI.
[2020-10-11] MEDS ORDERED: DIAZEPAM 5 MG/ML, 2ML IV ONE (13:30)
[2020-10-11] MEDS ORDERED: DIAZEPAM 5 MG/ML, 2ML ONE (14:20)
--- NOTE | 2020-10-11 14:29 | NUR ---
PATIENT MEDICATED PER EMAR AND TO MRI.
--- NOTE | 2020-10-11 14:42 | NUR ---
CALL FROM MRI, PATIENT WAS UNABLE TO TOLERATE THE MRI. THEY WILL BRING HIM BACK TO THE ROOM
--- NOTE | 2020-10-11 15:08 | NUR ---
AWARE OF MRI NOT BEING COMPLETED
[2020-10-11 15:35] VITALS: BP 133/72
--- NOTE | 2020-10-11 15:37 | NUR ---
Patient/Caregiver given discharge instructions and they have confirmed that they understand the instructions. Patient ambulatory with steady gait.
== END 2020-10-11 15:39 | disposition home or self-care (01) ==
LOC: ED 12:22
DX: I66.09 Occlusion and stenosis of unspecified middle cerebral artery (principal); E11.9 Type 2 diabetes mellitus without complications; I11.0 Hypertensive heart disease with heart failure; I50.9 Heart failure, unspecified; R53.1 Weakness; M19.90 Unspecified osteoarthritis, unspecified site; I48.91 Unspecified atrial fibrillation; E78.5 Hyperlipidemia, unspecified; K21.9 Gastro-esophageal reflux disease without esophagitis; E78.00 Pure hypercholesterolemia, unspecified; E66.9 Obesity, unspecified; Z86.73 Personal history of transient ischemic attack (TIA), and cerebral infarction without residual deficits; Z68.41 Body mass index [BMI] 40.0-44.9, adult
CPT/HCPCS: 36415; 80053; 85025; 85610; 85730; 93005; 96374; 99284; J3360

== ENCOUNTER 2020-10-13 23:55 | Emergency (ER) | payer MEDICARE ==
[~2020-10-13] VITALS: Ht 160 cm; Wt 117.1 kg
--- NOTE | 2020-10-14 00:04 | NUR ---
EKG DONE IN TRIAGE.
[2020-10-14 00:41] LABS: BASOPHILS % (AUTO) 0 % (0-1); EOSINOPHILS % (AUTO) 2 % (1-7); LYMPHOCYTES % (AUTO) 29 % (22-44); MEAN CORPUSCULAR HEMOGLOBIN 29.3 pg (27.5-34.5); MEAN CORPUSCULAR HGB CONC 33.7 g/dL (33.2-36.2); MEAN PLATELET VOLUME 7.6 fL (7.4-10.4); MONOCYTES % (AUTO) 15 % (2-9); NEUTROPHILS % (AUTO) 54 % (42-75); PLATELET COUNT 212 x10^3/uL (130-400); RED BLOOD COUNT 4.35 x10^6/uL (4.38-5.82); RED CELL DISTRIBUTION WIDTH 15.1 % (9.4-14.8)
[2020-10-14 00:43] LABS: ALANINE AMINOTRANSFERASE 22 U/L (12-78); ALBUMIN 3.4 g/dL (3.4-5.0); ANION GAP 5 mmol/L (5-15); CALCIUM 8.7 mg/dL (8.5-10.1); CHLORIDE 107 mmol/L (98-107); CREATININE 0.98 mg/dL (0.7-1.3); MD NO
[2020-10-14 00:48] LABS: ALKALINE PHOSPHATASE 123 U/L (45-117); BILIRUBIN,TOTAL 0.7 mg/dL (0.2-1.0); TOTAL PROTEIN 6.7 g/dL (6.4-8.2); TROPONIN I < 0.015 ng/mL (0.000-0.045)
[2020-10-14 01:05] VITALS: BP 144/84
== END 2020-10-14 01:07 ==
LOC: ED 10-14 00:23
DX: R07.2 Precordial pain (principal); Z72.9 Problem related to lifestyle, unspecified; R94.31 Abnormal electrocardiogram [ECG] [EKG]; E78.5 Hyperlipidemia, unspecified; I10 Essential (primary) hypertension; Z86.73 Personal history of transient ischemic attack (TIA), and cerebral infarction without residual deficits
CPT/HCPCS: 36415; 71045; 80053; 84484; 85025; 93005; 99285